=== PATIENT | female | born 1990 | race Caucasian/White ===

== ENCOUNTER 2020-12-15 14:13 | Outpatient (CLI) | payer OTHER, SELFPAY ==
[2020-12-15 14:33] VITALS: BP 148/89; PULSE 95
[2020-12-15 14:56] VITALS: BP 150/76; PULSE 87
[2020-12-15 15:00] VITALS: BP 147/89; PULSE 88
[2020-12-15 15:13] LABS: Basophils Percent Auto 0.2 % (0.2-1.2); Eosinophils Absolute Auto 0.1 K/mm3 (0-0.3); Eosinophils Percent Auto 0.6 % (0-4.4); Hematocrit 31.5 % (37.0-47.0); Hemoglobin 8.8 g/dL (12.0-15.0); Immature Granulocyte Percent A 0.9 % (0-0.5); Lymphocytes Absolute Auto 1.52 K/mm3 (0.9-3.2); Lymphocytes Percent Auto 14.1 % (18.3-44.2); Mean Corpuscular HGB Conc 27.9 g/dl (32-36); Mean Corpuscular Hemoglobin 21.3 pg (26-34); Mean Corpuscular Volume 76.1 fl (80-100); Mean Platelet Volume 10.3 fl (7.4-10.4); Monocytes Absolute Auto 0.6 K/mm3 (0.1-0.6); Monocytes Percent Auto 5.3 % (2.6-8.5); Neutrophils Absolute Auto 8.5 K/mm3 (1.3-6.7); Neutrophils Percent Auto 78.9 % (45.5-73.1); Platelet Count Result 323 k/mm3 (150-375); Red Blood Count 4.14 M/mm3 (4.2-5.4); Red Cell Distribution Width 22.5 % (11.5-14.5); White Blood Count 10.8 K/mm3 (4.5-10.0)
[2020-12-15 15:16] VITALS: BP 136/79; PULSE 85
[2020-12-15 15:19] LABS: Add Urine Microscopic? YES; Appearance Urine Cloudy (Clear); Bacteria Urine Trace /hpf; Bilirubin Urine Negative (Negative); Blood Urine Negative (Negative); Color Urine Yellow (Yellow); Glucose Urine UA Negative (Negative); Ketones Urine Negative (Negative); Leukocyte Esterase Ur 3+ LEU/UL (NEGATIVE); Nitrate Urine Negative (Negative); Protein Urine Negative (Negative); Squamous Epithelial Cell Urine Moderate /hpf (Few); Urobilinogen Urine Negative mg/dL (<2.0)
[2020-12-15 15:29] LABS: Alanine Aminotransferase 11 U/L (4-35); Albumin Level 3.7 g/dL (3.5-5.1); Alkaline Phosphatase 106 U/L (38-126); Anion Gap 8 mmol/L (8-16); Aspartate Amino Transferase 18 U/L (14-36); Bilirubin,Total 0.7 mg/dL (0.2-1.3); Blood Urea Nitrogen 7 mg/dL (7-17); Carbon Dioxide 21 mmol/L (22-30); Chloride 105 mmol/L (98-107); Estimated Glomerular Filt Rate > 60; Glucose 118 mg/dL (65-110); Potassium 3.8 mmol/L (3.4-5.0); Sodium 134 mmol/L (137-145); Uric Acid 3.2 mg/dL (2.5-7.5)
[2020-12-15 15:31] VITALS: BP 149/87; PULSE 89
[2020-12-15 15:42] LABS: Creatinine Urine 56.8 mg/dL; Total Protein Urine Random 16 mg/dL; Ur Ttl Prot Creatinine Ratio 0.28 mg/mg (0-0.20)
== END 2020-12-15 16:30 | disposition home or self-care (01) ==
LOC: ANHOBOP 14:21 → ANHOBPP 14:21
PROVIDERS: Visit Provider Obstetrics & Gynecology
DX: O13.9 Gestational [pregnancy-induced] hypertension without significant proteinuria, unspecified trimester (principal); Z3A.00 Weeks of gestation of pregnancy not specified
CPT/HCPCS: 36415; 59025; 80053; 81001; 82570; 84156; 84550; 85025; 87086; 99199

== ENCOUNTER 2020-12-16 16:20 | Outpatient (NON) | payer OTHER, SELFPAY ==
[2020-12-16 17:40] VITALS: BMI 38.1
[2020-12-16 19:09] LABS: Total Volume 24 Hour Urine 5250 ml
[2020-12-16 19:13] LABS: Total Volume 24 Hour Urine 5250 ml
[2020-12-16 19:20] LABS: Specific Gravity Ur 1.015
[2020-12-16 19:28] LABS: Total Protein Urine Random 16 mg/dL
[2020-12-16 19:31] LABS: Total Protein Urine 24 Hr 840 mg/24hr (28-141)
== END 2020-12-16 16:21 | disposition home or self-care (01) ==
LOC: ANHOBOP 17:23
PROVIDERS: Visit Provider Obstetrics & Gynecology
DX: R03.0 Elevated blood-pressure reading, without diagnosis of hypertension (principal)
CPT/HCPCS: 81050; 82570; 84156

== ENCOUNTER 2020-12-29 00:33 | Inpatient (IN) | payer OTHER, SELFPAY ==
[2020-12-29] VITALS (214 sets, daily range): BP systolic 101–165; BP diastolic 58–104; PULSE 83–137; RESP 16–20; TEMP 36.4–37.7; O2SAT 83–100; BMI 38.5
--- NOTE | 2020-12-29 00:35 | LDADM ---
This patient, Portia Mckeon, was admitted to Labor/Delivery/Recovery 107 on 12/29/20 at 00:33. Plans for labor, pain management and were discussed with patient. Patient/family oriented to hospital policies and general routines including ID bracelet, bed and alarms, visiting hours, pain management, procedures, bathroom and other care routines, personal items, smoking policy, room service/diet and guest tray routines, security routines, and visiting hours. Patient/Family are encouraged to report perceived risks to care and to ask questions if they do not understand what they are told or what they should do. See OBIX for further documentation.
[2020-12-29 01:11] LABS: Basophils Percent Auto 0.2 % (0.2-1.2); Eosinophils Absolute Auto 0.1 K/mm3 (0-0.3); Eosinophils Percent Auto 0.4 % (0-4.4); Hematocrit 34.5 % (37.0-47.0); Hemoglobin 9.7 g/dL (12.0-15.0); Immature Granulocyte Absolute 0.07 K/mm3 (0.00-0.031); Immature Granulocyte Percent A 0.5 % (0-0.5); Lymphocytes Absolute Auto 1.87 K/mm3 (0.9-3.2); Lymphocytes Percent Auto 13.7 % (18.3-44.2); Mean Corpuscular HGB Conc 28.1 g/dl (32-36); Mean Corpuscular Hemoglobin 20.8 pg (26-34); Mean Corpuscular Volume 73.9 fl (80-100); Mean Platelet Volume 10.6 fl (7.4-10.4); Monocytes Absolute Auto 0.7 K/mm3 (0.1-0.6); Monocytes Percent Auto 5.3 % (2.6-8.5); Neutrophils Absolute Auto 10.9 K/mm3 (1.3-6.7); Neutrophils Percent Auto 79.9 % (45.5-73.1); Platelet Count Result 208 k/mm3 (150-375); Red Blood Count 4.67 M/mm3 (4.2-5.4); Red Cell Distribution Width 20.4 % (11.5-14.5); White Blood Count 13.6 K/mm3 (4.5-10.0)
[2020-12-29] MEDS: DINOPROSTONE 10 MG VAG INSERT VAGINAL (01:14)
[2020-12-29] MEDS: LACTATED RINGERS 1,000 ML 125 ML IV CONT ×2 (01:20→10:18)
[2020-12-29] MEDS: AMPICILLIN 2 GM/NS 100 ML 2 GM/100 ML BAG IVPB (01:22)
[2020-12-29 01:35] LABS: Platelet Estimate Adequate (Adequate)
[2020-12-29 01:36] LABS: Ovalocytes 2+ (NORMAL); Tear Drop Cells 2+ (NORMAL)
[2020-12-29] MEDS: AMPICILLIN 1 GM/NS 50 ML 1 GM/50 ML BAG IVPB ×4 (05:15→18:35)
[2020-12-29 06:22] LABS: Rapid Plasma Reagin Non-Reactive (NonReactive)
--- NOTE | 2020-12-29 08:10 | WPDANESEPP ---
Anes - Eval Pre Procedure Procedure: labor epidural Date/Time: 12/29/20 08:10 Surgeon: bijan Pre Op Diagnosis: IOL Patient Data Age: 30 Gender: F Height: 1.75 m Weight: 118.18 kg Last Vital Signs Temp 36.6 C 12/29/20 01:52 Pulse 92 12/29/20 07:16 Resp 16 12/29/20 03:49 BP 138/96 H 12/29/20 07:16 Allergies Allergy/AdvReac Type Severity Reaction Status Date / Time No Known Allergies Allergy Verified 12/29/20 06:19 Home Medications Medication Instructions Recorded Confirmed Type PNV cmb#95-ferrous fumarate-FA 1 tablet PO DAILY 12/03/20 12/03/20 History [] ferrous sulfate [Iron (ferrous 325 mg PO BID 12/03/20 12/03/20 History sulfate)] Laboratory Tests 12/29/20 12/29/20 12/29/20 01:02 01:02 05:23 WBC 13.6 K/mm3 H K/mm3 (4.5-10.0) RBC 4.67 M/mm3 M/mm3 (4.2-5.4) Hgb 9.7 g/dL L g/dL (12.0-15.0) Hct 34.5 % L % (37.0-47.0) MCV 73.9 fl L fl (80-100) MCH 20.8 pg L pg (26-34) MCHC 28.1 g/dl L g/dl (32-36) RDW 20.4 % H % (11.5-14.5) Plt Count 208 k/mm3 k/mm3 (150-375) MPV 10.6 fl H fl (7.4-10.4) Immature Gran % (Auto) 0.5 % % (0-0.5) Neut % (Auto) 79.9 % H % (45.5-73.1) Lymph % (Auto) 13.7 % L % (18.3-44.2) [place] % (Auto) 5.3 % % (2.6-8.5) Eos % (Auto) 0.4 % % (0-4.4) Baso % (Auto) 0.2 % % (0.2-1.2) Lymph # (Auto) 1.87 K/mm3 K/mm3 (0.9-3.2) [place] # (Auto) 0.7 K/mm3 H K/mm3 (0.1-0.6) Eos # (Auto) 0.1 K/mm3 K/mm3 (0-0.3) Baso # (Auto) 0.0 K/mm3 K/mm3 (0.0-0.1) Abs Immat Gran (auto) 0.07 K/mm3 H K/mm3 (0.00-0.031) Absolute Neuts (auto) 10.9 K/mm3 H K/mm3 (1.3-6.7) Absolute Nucleated RBC 0.0 K/mm3 K/mm3 (0.0-0.012) Nucleated RBC % 0.0 % % (0.0-0.2) Platelet Estimate Adequate (Adequate) Tear Drop Cells 2+ (NORMAL) Ovalocytes 2+ (NORMAL) RPR Non-reactive (NonReactive) Blood Type A Positive Antibody Screen Negative Patient hx anesthesia problems: none Family hx anesthesia problems: none Results Review: All pre-operative results and documents have been reviewed as part of the pre-operative evaluation. [facility] Family History Family History Mother Diabetes mellitus Social History Social History Smoking status: Never smoker Substance use: never Spiritual care concerns: No Exam Day of Procedure 12/29/20 08:10
--- NOTE | 2020-12-29 08:40 | PM.IMHP ---
H&P: HPI History of Present Illness Date/Time: 12/29/20 0840 30 y/o G1 at 39 4/7 weeks here for scheduled induction of labor. EFW 97th percentile. GBS pos. Cervidil overnight. Chief Complaint: Here for induction of labor Review of Systems Review of Systems: All systems reviewed & are unremarkable except as noted in HPI and below PMFSH Past Medical History Medical History ADHD (attention deficit hyperactivity disorder) Family History Family History Mother Diabetes mellitus Social History Social History Smoking status: Never smoker Substance use: never Spiritual care concerns: No Meds Home Medications and Allergies Home Medications Medication Instructions Recorded Confirmed Type PNV cmb#95-ferrous fumarate-FA 1 tablet PO DAILY 12/03/20 12/03/20 History [] ferrous sulfate [Iron (ferrous 325 mg PO BID 12/03/20 12/03/20 History sulfate)] Allergies Allergy/AdvReac Type Severity Reaction Status Date / Time No Known Allergies Allergy Verified 12/29/20 06:19 Vital Signs Vital Signs - 24 hr 12/29/20 00:51 12/29/20 01:01 12/29/20 01:15 Temperature Pulse Rate 103 H 107 H 107 H Respiratory Rate Blood Pressure 139/102 H 130/92 H 138/88 Pulse Oximetry 12/29/20 01:31 12/29/20 01:46 12/29/20 01:52 Temperature 36.6 C Pulse Rate 95 91 Respiratory Rate 18 Blood Pressure 130/88 134/84 Pulse Oximetry 12/29/20 02:01 12/29/20 02:16 12/29/20 02:30 Temperature Pulse Rate 94 91 97 Respiratory Rate Blood Pressure 142/92 H 130/82 132/88 Pulse Oximetry 12/29/20 02:46 12/29/20 03:01 12/29/20 03:49 Temperature Pulse Rate 83 91 Respiratory Rate 16 Blood Pressure 136/76 136/85 Pulse Oximetry 12/29/20 07:08 12/29/20 07:16 12/29/20 07:36 Temperature 36.6 C Pulse Rate 100 92 Respiratory Rate Blood Pressure 145/95 H 138/96 H Pulse Oximetry 12/29/20 09:00 12/29/20 09:01 12/29/20 09:16 Temperature 36.6 C Pulse Rate 101 H 103 H Respiratory Rate Blood Pressure 156/98 H 151/88 H Pulse Oximetry 12/29/20 09:31 12/29/20 10:33 12/29/20 10:38 Temperature Pulse Rate 102 H 113 H Respiratory Rate Blood Pressure 153/89 H 140/90 Pulse Oximetry 100 100 12/29/20 10:43 12/29/20 10:46 12/29/20 10:48 Temperature Pulse Rate 100 94 101 H Respiratory Rate Blood Pressure 158/97 H 159/90 H 138/87 Pulse Oximetry 100 100 12/29/20 10:51 12/29/20 10:53 12/29/20 10:56 Temperature Pulse Rate 92 104 H 101 H Respiratory Rate Blood Pressure 147/87 H 142/79 H 144/80 H Pulse Oximetry 98 12/29/20 10:58 12/29/20 11:00 12/29/20 11:03 Temperature 36.5 C Pulse Rate 106 H 100 110 H Respiratory Rate Blood Pressure 136/91 H 129/78 126/71 Pulse Oximetry 100 100 12/29/20 11:06 12/29/20 11:08 12/29/20 11:11 Temperature Pulse Rate 116 H 115 H Respiratory Rate Blood Pressure 133/67 116/77 Pulse Oximetry 100 12/29/20 11:13 12/29/20 11:15 12/29/20 11:18 Temperature Pulse Rate 136 H Respiratory Rate Blood Pressure 117/73 Pulse Oximetry 100 100 12/29/20 11:20 12/29/20 11:23 12/29/20 11:26 Temperature Pulse Rate 105 H 107 H Respiratory Rate Blood Pressure 120/64 110/77 Pulse Oximetry 100 12/29/20 11:28 12/29/20 11:31 12/29/20 11:33 Temperature Pulse Rate 98 Respiratory Rate Blood Pressure 125/58 L Pulse Oximetry 100 100 12/29/20 11:38 12/29/20 11:41 12/29/20 11:43 Temperature Pulse Rate 99 Respiratory Rate Blood Pressure 122/68 Pulse Oximetry 100 100 12/29/20 11:46 12/29/20 11:48 12/29/20 11:51 Temperature Pulse Rate 98 100 Respiratory Rate Blood Pressure 112/59 L 107/63 Pulse Oximetry 100 12/29/20 11:53 12/29/20 11:56
--- NOTE | 2020-12-29 08:40 | WPDOBADMIT ---
Obstetrics - Admit Note Admission Note: record reviewed. Additions to the history and/or subsequent changes in the physical findings follow. 30 y/o G1 at 39 4/7 weeks here for induction of labor. EFW 97th percentile. GBS pos. Cervidil last night. AVSS NST reactive TOCO: contractions irregularly ABD soft, gravid, vertex EXT nontender Cervix 2/50/-2. AROM with clear fluid. IUPC placed. Cervidil withdrawn. A: IUP at term, GBS pos. P: Oxytocin. Ampicillin.
[2020-12-29] MEDS: OXYTOCIN 30 UNITS/NS 500 ML 30 UNITS/500 ML BAG 6 UNITS IV CONT (09:18)
--- NOTE | 2020-12-29 13:05 | PM.OBPNLAB ---
Pain Control Date/time seen: 12/29/20 4085 Comments: Comfortable with epidural. Pelvic Exam Dilation (cm): 4 Effacement (%): 50 station: -2 Contractions Contraction frequency: 3 Contraction pattern: Regular Status status: Category l Assessment and Plan Pitocin rate (mU/min): 20 Plan: continuous present management
--- NOTE | 2020-12-29 17:54 | PM.OBPNLAB ---
Pain Control Date/time seen: 12/29/20 17:54 Comments: Comfortable Pelvic Exam Dilation (cm): 4 Effacement (%): 50 station: -2 Contractions Contraction frequency: 3 Contraction pattern: Regular Status status: Category l Assessment and Plan Plan: continuous present management
--- NOTE | 2020-12-29 23:37 | PM.OBPNLAB ---
Pain Control Date/time seen: 12/29/20 23:37 Comments: Pain OK. Pelvic Exam Dilation (cm): 5 Effacement (%): 50 station: -2 Contractions Contraction frequency: 3 Contraction pattern: Regular Status status: Category l Assessment and Plan Comments: A: No significant change in cervix / station despite hours of adequate uterine contractions. P: I have offered primary . She understands risks of surgery to include risks of anesthesia, risks of pain, infection, bleeding, blood products, thromboembolic phenomena and damage to adjacent structures such as bowel, bladder, ureters, blood vessels and nerves. She understands all these risks and elects to proceed with surgery.
[2020-12-29] MEDS: ceFAZolin 2 GM/D5W 50 ML 2 GM/50 ML BAG IVPB (23:42)
[2020-12-30] VITALS (45 sets, daily range): BP systolic 112–151; BP diastolic 59–95; PULSE 97–121; RESP 16–18; TEMP 36.1–37.6; O2SAT 95–100
--- NOTE | 2020-12-30 00:31 | P.PCNOB_ITS ---
OB - Delivery Note Procedure Delivery date: 12/30/20 Procedure: Procedures Operation Date: 12/29/20 23:00 <No data on this case meets the specified criteria> Primary low transverse delivery Induction method: per cervidil protocol Delivery augmentation: rupture of membranes and pitocin Delivery monitor: external FHT, external uterine and internal uterine Route of delivery: Quantitative Blood Loss (ml): 417 Anesthesia type: Epidural Disposition: PACU Complications: None Narrative: The patient was taken to the operating room where she was prepared and draped in the usual sterile fashion in dorsal supine position with a leftward tilt. She received cefazolin preoperatively. Spinal anesthesia was found to be adequate. A Pfannenstiel skin incision was made and carried through to the underlying layer of the fascia. The fascia was incised in the midline and the incision was extended laterally. The fascia was dissected free of the underlying rectus muscles. The rectus muscles were in the midline. The peritoneum was identified, tented up and entered sharply. The peritoneal incision was extended superiorly and inferiorly with good visualization of the bladder. The bladder blade was placed. The vesicouterine peritoneum was identified, tented up and entered sharply. The incision was extended laterally and the bladder flap was developed. The bladder blade was replaced. The uterus was then incised sharply in a transverse fashion along the lower uterine segment. The incision was extended laterally. The 's head was delivered atraumatically to the sterile field, followed by the body. The nose and mouth were bulb suctioned. After a delay, the cord was clamped and cut. The infant was handed off the field. Cord blood was collected. The placenta was removed manually and was passed off the field. The uterus was exteriorized and cleared of all clots and debris. The uterine incision was reapproximated using 0 Monoc ryl in a running, locked fashion. Excellent hemostasis resulted as did excellent reapproximation of the normal anatomy. The uterus was returned the abdomen. The pelvis was irrigated copiously with warmed normal saline. Rigorous hemostasis was assured. The fascial layer was reapproximated using 0 Vicryl in a running fashion. The skin was closed with a running, subcuticular stitch of 4 0 Vicryl. Dermaflex was applied externally. Sponge, lap, needle and instrument counts were correct. The patient was taken to the recovery room in stable condition. The went to the nursery in stable condition. I was present and scrubbed the entire procedure. [place] [facility] Date of : 12/30/20 Time of : 00:03 Weeks of gestation at delivery: 39 gender: Male Weight (pounds): 7 Weight (ounces): 13 presentation: vertex Placenta delivery description: Manual Removal and Normal Configuration cord vessel description: 3 Vessels and Delayed Cord Clamping score one minute: 8 score five minutes: 9
--- NOTE | 2020-12-30 00:32 | PM.OBDSVD ---
DS: Admitting Diagnosis Discharge Date 01/01/21 Admitting Diagnosis IUP at 39 4/7 weeks GBS colonization DS: Discharge Diagnosis Discharge Diagnosis (1) GBS (group B Streptococcus carrier), +RV culture, currently : Code(s): O99.820 - Streptococcus B carrier state complicating Status: Acute (2) delivery delivered: Code(s): O82 - Encounter for delivery without indication Status: Acute OB - DS: Summary OB Procedures : None OB Procedures Intrapartum: OB Procedures: : None Peripartum Data Procedures: Procedures Operation Date: 12/29/20 23:00 <No data on this case meets the specified criteria> Primary LTCS Time Spent with Patient Time attestation: Total time spent providing and/or coordinating discharge services: DS: Data Data Completed and Pending Labs on day of discharge: Labs from last 24 hours 12/29/20 12/29/20 12/29/20 05:23 01:02 01:02 WBC 13.6 H RBC 4.67 Hgb 9.7 L Hct 34.5 L MCV 73.9 L MCH 20.8 L MCHC 28.1 L RDW 20.4 H Plt Count 208 MPV 10.6 H Immature Gran % (Auto) 0.5 Neut % (Auto) 79.9 H Lymph % (Auto) 13.7 L [place] % (Auto) 5.3 Eos % (Auto) 0.4 Baso % (Auto) 0.2 Lymph # (Auto) 1.87 [place] # (Auto) 0.7 H Eos # (Auto) 0.1 Baso # (Auto) 0.0 Abs Immat Gran (auto) 0.07 H Absolute Neuts (auto) 10.9 H Absolute Nucleated RBC 0.0 Nucleated RBC % 0.0 Platelet Estimate Adequate Tear Drop Cells 2+ Ovalocytes 2+ RPR Non-reactive Blood Type A Positive Antibody Screen Negative Discharge Plan Discharge Attending physician on discharge: Carl Tse Discharging Clinician: Carl Tse Patient Disposition: Home, Self-Care Activity: may shower, may drive after 2 weeks and pelvic rest Diet: regular Wound Care Instructions: incision open to air Discharge Instructions: Education: Mom and Baby Guide Given to: Mother Follow-Up: Call your delivering provider's office for an appointment to be seen in: 4 Weeks Mom and baby should come to the [facility] for the follow-up appointment. Appointment Date/Time: Saturday, January 02, 2021 at 8:00 am Call [phone] if you are unable to keep your appointment time. BREAST CARE: * Wear a snug supportive bra. * For engorgement discomfort: Breast Feeding: * Apply warm moist washcloths * Express milk as needed to relieve engorgement * Wear loose clothing * For sore nipples: * Identify correct latch-on * Apply warm moist washcloths before and after nursing * Air dry nipples after nursing * May apply Lansinoh cream to nipples ABDOMINAL INCISION: (if applicable) * Allow incision to air dry * Do NOT use lotions for powders on your incision * When showering, allow soap and water to run over the incision, but do not wash incision PERINEAL CARE: * Until bleeding stops, use your augusto bottle after urinating * Change your pad frequently throughout the day * You may take sitz baths several times a day (fill your bathtub with warm water and soak for 20 minutes.) Do NOT bathe in the water * No tub baths until seen by your physician - You may shower ACTIVITY: * Rest as much as possible. * Do not exercise or lift anything heavier than your baby (such as laundry or other children.) * Avoid stairs or driving as much as possible. * Do not put anything into the vagina. No douching, tampons, or sexual activity until seen by physician. NOTIFY PHYSICIAN IF YOU HAVE ANY QUESTIONS OR IF ANY OF THE FOLLOWING SYMPTOMS OCCUR: * If your episiotomy or incision becomes red, swollen, or more painful than what you have experienced in the hospital. * If your vaginal bleeding becomes foul smelling. * If your vaginal bleeding becomes more heavy than a period or if you
[2020-12-30] MEDS: OXYTOCIN 30 UNITS/NS 500 ML 30 UNITS/500 ML BAG 125 UNITS IV CONT (01:22)
[2020-12-30] MEDS: KETOROLAC 30 MG/ML VIAL (*BKC) IV PUSH (02:17)
[2020-12-30] MEDS: DEXTROSE 5%/0.45% SOD CHL 1,000 ML 125 ML IV CONT (05:57)
[2020-12-30] MEDS: HYDROcodone/acetaminophen (*CRX) 5-325 MG TABLET 1 TAB PO ×4 (05:58→17:01)
[2020-12-30] MEDS: IBUPROFEN 600 MG TABLET PO ×3 (09:50→21:58)
[2020-12-30] MEDS: MULTIVIT/MIN/PREN/FOL AC/IRON TABLET 1 TAB PO (09:50)
[2020-12-30] MEDS: POLYSACCHARIDE IRON COMPLEX 150 MG CAPSULE PO ×2 (09:50→17:02)
--- NOTE | 2020-12-30 10:27 | P.PNOB_ITS ---
OB - PN: Subj Subjective Date/time seen: 12/30/20 10:27 Patient comments: no complaints and pain well controlled baby status: doing well and nursing well OB - PN: Obj Data Labs CBC & Chem 7: 12/29/20 01:02 OB - PN A/P Plan day: 1 Plan: routine care Time Spent With Patient Time: Total time spent is greater than 50% in coordination of care (as valentino pack) at patient's floor/unit and/or counseling patient: Time with patient: less than 15 minutes Review of Systems Review of Systems: All systems reviewed & are unremarkable except as noted in HPI and below Exam Const: General: no acute distress Eyes: General: appearance normal, both eyes and all related structures Neck: Neck: supple and no JVD Thyroid: thyroid normal Resp: Effort & Inspection: normal respiratory effort Auscultation: clear to auscultation bilaterally Cardio: Rate: regular rate Rhythm: regular rhythm GI: Inspection: non-distended GI Palp: Yes Soft to palpation, No Tenderness to palpation present (GI) and No Guarding due to palpation present (GI) Auscultation: normal bowel sounds : General: Yes bladder normal to palpation External Female Exam: normal external appearance Speculum Exam - Vagina: normal vaginal discharge and No vaginal bleeding Speculum Exam - Cervix: nontender Bimanual exam- vagina & uterus: bladder normal to palpation and No Cervical tenderness present OB/external & speculum: No vaginal bleeding Skin: General skin exam: no rashes or lesions noted Extrem: General: normal to inspection and no edema Psych: Mental Status: mental status grossly normal Affect: normal affect
--- NOTE | 2020-12-30 10:35 | PC.NURSE ---
Mother called out for assist with feeding, reporting is sleepy and not waking. is able to freely thrust tongue past gum ridge and flange both lips. Skin is intact on both nipples, no redness and bruising noted. Discussed establishing in the late may be more difficult due to their immaturity, may be less alert, have less stamina, and have greater difficulty with latch, suck, and swallow. ?s feeding may impact mother?s milk supply, pumping may need to be initiated until milk supply is well established and is able to effectively breastfeed without supplementation. Reviewed infant feeding cues, frequencies, duration of feedings, feeding elimination flow sheet, and signs of adequate intake. Demonstrated stimulation techniques to wake infant for feeding. Assisted with to breast. Reviewed positioning/alignment in cross cradle, holding breast in ?U? hold and guided asymmetrical latch on. Reviewed rational for each. able to latch correctly within a few attempts. nursed eagerly with steady draws and occasional swallowing noted, some pausing noted. Reviewed signs of a correct latch, effective nursing and suck swallow ratio. Suggested mother stimulate while feeding to increase stimulation for milk supply, for increased intake and to assist with maintaining deep latch. was able to maintain latch without discomfort to mother. Demonstrated how to adjust latch more deeply while feeding if needed. Mother reports she can feel the difference in latch with no tenderness. Nipple care reviewed of lanolin after feedings, warm compresses as needed, gel pads provided and reviewed care and cleaning. Instructed mother to call out for RN assistance if she is unable to latch for feeding or she has discomfort with nursing. Instructed feeding should be initiated three hours from start of last feeding or if feeding cues are noted before. Mother voiced understanding of information shared.
--- NOTE | 2020-12-30 13:50 | PC.NURSE ---
Mother called out for assist with feeding,struggling to get a deep latch. Assisted with to breast. Reviewed positioning/alignment in cross cradle, holding breast in ?U? hold and guided asymmetrical latch on. Reviewed rational for each. Infant able to latch correctly within a few attempts. Infant nursed eagerly with steady draws and occasional swallowing noted, some pausing noted. Reviewed signs of a correct latch, effective nursing and suck swallow ratio. Suggested mother stimulate while feeding to increase stimulation for milk supply, for increased intake and to assist with maintaining deep latch. Infant would slip to shallow latch causing tenderness. Demonstrated how to adjust latch more deeply while feeding if needed. Mother reports she can feel the difference in latch with no tenderness. Nipple care reviewed of lanolin after feedings, warm compresses as needed, gel pads provided and reviewed care and cleaning. Instructed mother to call out for RN assistance if she is unable to latch infant for feeding or she has discomfort with nursing. Instructed feeding should be initiated three hours from start of last feeding or if feeding cues are noted before. Mother voiced understanding of information shared.
[2020-12-30] MEDS: DOCUSATE SODIUM 100 MG CAPSULE PO (17:02)
[2020-12-30] MEDS: SIMETHICONE 80 MG TAB.CHEW PO (21:58)
[2020-12-30] MEDS: HYDROcodone/acetaminophen (*CRX) 10-325 MG TABLET 1 TAB PO (21:58)
[2020-12-31] VITALS: BP 132/77; PULSE 96; RESP 18; TEMP 37
[2020-12-31 05:29] LABS: Basophils Percent Auto 0.2 % (0.2-1.2); Eosinophils Absolute Auto 0.1 K/mm3 (0-0.3); Eosinophils Percent Auto 0.9 % (0-4.4); Hematocrit 24.3 % (37.0-47.0); Immature Granulocyte Absolute 0.11 K/mm3 (0.00-0.031); Immature Granulocyte Percent A 1.2 % (0-0.5); Lymphocytes Percent Auto 9.9 % (18.3-44.2); Mean Corpuscular Hemoglobin 21.3 pg (26-34); Mean Corpuscular Volume 76.2 fl (80-100); Mean Platelet Volume 10.5 fl (7.4-10.4); Monocytes Absolute Auto 0.8 K/mm3 (0.1-0.6); Monocytes Percent Auto 8.9 % (2.6-8.5); Neutrophils Absolute Auto 7.2 K/mm3 (1.3-6.7); Neutrophils Percent Auto 78.9 % (45.5-73.1); Nucleated Red Blood Cells Perc 0.2 % (0.0-0.2); Platelet Count Result 194 k/mm3 (150-375); Red Blood Count 3.19 M/mm3 (4.2-5.4); Red Cell Distribution Width 20.1 % (11.5-14.5); White Blood Count 9.1 K/mm3 (4.5-10.0)
[2020-12-31] MEDS: IBUPROFEN 600 MG TABLET PO ×3 (05:45→20:28)
[2020-12-31] MEDS: SIMETHICONE 80 MG TAB.CHEW PO ×3 (05:45→20:28)
[2020-12-31] MEDS: HYDROcodone/acetaminophen (*CRX) 10-325 MG TABLET 1 TAB PO ×3 (05:46→13:27)
[2020-12-31 06:06] LABS: Hemoglobin 6.8 g/dL (12.0-15.0)
[2020-12-31 06:07] LABS: Anisocytosis 1+ (NORMAL); Hypochromasia 1+ (NORMAL); Platelet Estimate Adequate (Adequate)
--- NOTE | 2020-12-31 07:39 | P.PNOB_ITS ---
OB - PN: Subj Subjective Date/time seen: 12/31/20 07:39 Patient comments: no complaints and pain well controlled OB - PN: Obj Data Labs CBC & Chem 7: 12/31/20 03:08 Labs: Laboratory Results - last 24 hr 12/31/20 03:08 WBC 9.1 RBC 3.19 L Hgb 6.8 L* Hct 24.3 L MCV 76.2 L MCH 21.3 L MCHC 28.0 L RDW 20.1 H Plt Count 194 MPV 10.5 H Immature Gran % (Auto) 1.2 H Neut % (Auto) 78.9 H Lymph % (Auto) 9.9 L [place] % (Auto) 8.9 H Eos % (Auto) 0.9 Baso % (Auto) 0.2 Lymph # (Auto) 0.90 [place] # (Auto) 0.8 H Eos # (Auto) 0.1 Baso # (Auto) 0.0 Abs Immat Gran (auto) 0.11 H Absolute Neuts (auto) 7.2 H Absolute Nucleated RBC 0.0 Nucleated RBC % 0.2 Platelet Estimate Adequate Hypochromasia 1+ Anisocytosis 1+ OB - PN A/P Plan day: 2 Plan: routine care Comments: begin iron replacement Time Spent With Patient Time: Total time spent is greater than 50% in coordination of care (as documented) at patient's floor/unit and/or counseling patient: Time with patient: less than 15 minutes Review of Systems Review of Systems: All systems reviewed & are unremarkable except as noted in HPI and below Exam Const: General: no acute distress Eyes: General: appearance normal, both eyes and all related structures Neck: Neck: supple and no JVD Thyroid: thyroid normal Resp: Effort & Inspection: normal respiratory effort Auscultation: clear to auscultation bilaterally Cardio: Rate: regular rate Rhythm: regular rhythm GI: Inspection: non-distended GI Palp: Yes Soft to palpation, No Tenderness to palpation present (GI) and No Guarding due to palpation present (GI) Auscultation: normal bowel sounds : General: Yes bladder normal to palpation External Female Exam: normal external appearance Speculum Exam - Vagina: normal vaginal discharge and No vaginal bleeding Speculum Exam - Cervix: nontender Bimanual exam- vagina & uterus: bladder normal to palpation and No Cervical tenderness present OB/external & speculum: No vaginal bleeding Skin: General skin exam: no rashes or lesions noted Extrem: General: normal to inspection and no edema Psych: Mental Status: mental status grossly normal Affect: normal affect
[2020-12-31] MEDS: DOCUSATE SODIUM 100 MG CAPSULE PO ×2 (09:16→15:15)
[2020-12-31] MEDS: POLYSACCHARIDE IRON COMPLEX 150 MG CAPSULE PO ×2 (09:16→15:15)
[2020-12-31] MEDS: MULTIVIT/MIN/PREN/FOL AC/IRON TABLET 1 TAB PO (09:16)
[2020-12-31 09:17] VITALS: BP 121/79; PULSE 80; RESP 16; TEMP 36.1; O2SAT 100
--- NOTE | 2020-12-31 09:53 | WPDANLDNPN2 ---
Anes-Prog Note L&D-Neuraxial Date/Time: 12/31/20 09:53 Neuraxial medications: epidural PF morphine Opiod-related complaints: none Patient feedback: Patient satisfied with post-operative pain management.
--- NOTE | 2020-12-31 09:53 | WPDANLDPN2 ---
Anes-Prog Note L&D Date/Time: 12/31/20 09:53 Comfortable throughout: labor and delivery Neuraxial method: epidural Epidural/Spinal procedure site: clean & non-tender Neuro status: Neuro function grossly intact. Cardiovascular status: normal Respiratory status: normal Airway patency: baseline Mental status: baseline Post-Op hydration status: normal Vital Signs: Last Vital Signs Temp 37.0 C 12/31/20 00:00 Pulse 96 12/31/20 00:00 Resp 18 12/31/20 00:00 BP 132/77 12/31/20 00:00 Pulse Ox 100 12/30/20 17:15 Pain score (VAS): 0 I/O: Intake & Output 12/30/20 12/31/20 12/31/20 23:59 07:59 15:59 Intake Total 3200 Output Total 3150 Balance 50 Post-procedural complaints: none Patient feedback: Patient satisfied with anesthetic care.
[2020-12-31] MEDS: HYDROcodone/acetaminophen (*CRX) 5-325 MG TABLET 1 TAB PO (20:28)
[2020-12-31 20:30] VITALS: BP 126/88; PULSE 98; RESP 16; TEMP 37; O2SAT 100
--- NOTE | 2020-12-31 20:38 | PC.NURSE ---
Patient viewed the discharge video Mother & Baby Care, The First Two Weeks . Patient was given the opportunity and encouraged to ask questions. Patient verbalized understanding of information shared and has been given the mother/baby guide for home reference.
[2021-01-01] MEDS: SIMETHICONE 80 MG TAB.CHEW PO ×3 (00:36→10:18)
[2021-01-01] MEDS: HYDROcodone/acetaminophen (*CRX) 5-325 MG TABLET 1 TAB PO ×3 (00:36→10:16)
[2021-01-01] MEDS: IBUPROFEN 600 MG TABLET PO ×2 (04:20→10:17)
--- NOTE | 2021-01-01 07:02 | P.DS_ITS ---
DS: Admitting Diagnosis Discharge Date 01/02/2021 Admitting Diagnosis term for induction DS: Summary Hospital Course Hospital Course: patient was admitted for induction of labor. She failed to progress and underwent section. Postop course unremarkable. She did have a low hemoglobin at 6.6 but was asymptomatic. She remained afebrile and was up walking voiding and generally felt complaints Time Spent with Patient Time attestation: Total time spent providing and/or coordinating discharge se rvices: DS: Data Data Completed and Pending Pending studies at discharge: Pending at discharge 12/30/20 02:04 Surgical [PTH] Routine Discharge Plan Discharge Attending physician on discharge: Carl Tse Discharging Clinician: Carl Tse Patient Disposition: Home, Self-Care Activity: may shower, may drive after 2 weeks and pelvic rest Diet: regular Wound Care Instructions: incision open to air Discharge Instructions: Call or return if temperature above 100.4? F, increased abdominal pain, increased vaginal bleeding or any new problems. Stand Alone Forms: General Discharge Information Follow-up/Referrals: Carl Tse MD [Physician] - 4 Weeks Discharge Medications: New ibuprofen 600 mg tablet 600 mg PO Q6H PRN (Reason: cramps) Qty: 30 RF: 0 hydrocodone-acetaminophen 5-325 mg tablet 1 - 2 tablet PO Q6H PRN (Reason: pain) Qty: 30 RF: 0 ferrous sulfate 325 mg (65 mg iron) tablet 325 mg PO DAILY Qty: 30 RF: 0 Continued ferrous sulfate [Iron (ferrous sulfate)] 325 mg (65 mg iron) Tablet 325 mg PO BID RF: 0 PNV cmb#95-ferrous fumarate-FA [] 28 mg iron- 800 mcg Tablet 1 tablet PO DAILY RF: 0 Date of admission: 12/29/20 00:33 Primary Care Provider: PHYSICIAN,BLASTING CONTRACT MINER Admitting Provider: Carl Tse Attending physician on admission: Carl Tse Condition: Stable
--- NOTE | 2021-01-01 07:03 | P.PNOB_ITS ---
OB - PN: Subj Subjective Date/time seen: 01/01/21 07:03 Patient comments: no complaints and pain well controlled baby status: doing well and nursing well OB - PN: Obj Data Labs CBC & Chem 7: 12/31/20 03:08 OB - PN A/P Plan day: 2 Plan: routine care Time Spent With Patient Time: Total time spent is greater than 50% in coordination of care (as valentino pack) at patient's floor/unit and/or counseling patient: Time with patient: less than 15 minutes Review of Systems Review of Systems: All systems reviewed & are unremarkable except as noted in HPI and below Exam Const: General: no acute distress Eyes: General: appearance normal, both eyes and all related structures Neck: Neck: supple and no JVD Thyroid: thyroid normal Resp: Effort & Inspection: normal respiratory effort Auscultation: clear to auscultation bilaterally Cardio: Rate: regular rate Rhythm: regular rhythm GI: Inspection: non-distended GI Palp: Yes Soft to palpation, No Tenderness to palpation present (GI) and No Guarding due to palpation present (GI) Auscultation: normal bowel sounds : General: Yes bladder normal to palpation External Female Exam: normal external appearance Speculum Exam - Vagina: normal vaginal discharge and No vaginal bleeding Speculum Exam - Cervix: nontender Bimanual exam- vagina & uterus: bladder normal to palpation and No Cervical tenderness present OB/external & speculum: No vaginal bleeding Skin: General skin exam: no rashes or lesions noted Extrem: General: normal to inspection and no edema Psych: Mental Status: mental status grossly normal Affect: normal affect
[2021-01-01] MEDS: MULTIVIT/MIN/PREN/FOL AC/IRON TABLET 1 TAB PO (10:16)
[2021-01-01] MEDS: POLYSACCHARIDE IRON COMPLEX 150 MG CAPSULE PO (10:17)
[2021-01-01] MEDS: DOCUSATE SODIUM 100 MG CAPSULE PO (10:17)
[2021-01-01 10:18] VITALS: BP 144/89; PULSE 98; RESP 16; TEMP 36.9; O2SAT 100
[2021-01-02 08:12] VITALS: BP 146/87; PULSE 96; RESP 20; TEMP 36.9; O2SAT 100
--- NOTE | 2021-01-02 15:22 | PC.NURSE ---
0930 While pt here for her f/u, worked with mom and baby with breast feeding. Mother reported difficulty latching because of engorgement . Mother reports mosly bottle feeding pumped breast milk. Baby is at 10% weight loss from weight and mother has been instructed to supplement breast feedings. Mother was taught ways to soften nipple and areolar area prior to latching infant for feedings, including warm compresses, breast massage and hand expression prior to latch on, and /or pumping a few minutes prior to latching . She was encouraged to breast feeding first, then pump after breast feeding to enhance her milk supply
--- NOTE | 2021-01-02 15:31 | PC.NURSE ---
0930 while pt here for her f/u visit, nurse worked with mother and baby with breast feeding. Mother reports her milk is not in. Baby is 3 days old. Baby's weight at 10% loss. Mother has been instructed to supplement infant formula or pumped breast millk after breast feedings. She was instructed to breast feed, bottle feeding and start pumping after each feeding untll her milk comes in. Nurse suggested that if mother did not feel breast changes by tomorrow that she contact the LC whom she met while in the hospital. Referred parents to their Mother Baby Guide for LC contact number, and breast feeding education. Nurse assisted mother with feeding. Baby initially latched in cross-cradle position, but latch was not effective. Taught mother football positioning, alignment, and how to assess for deep latch. Baby's latch much better in football position, and baby demonstrated rhythmic sucking with maintained latch, with some swallowing. Parents shown how to stimulate to more vigorous sucking while at the breast. When baby initialy latched he was tense, fists clasped. After nursing the second side, for another 15 minutes baby was sleepy and relaxed. Mother was shown how to hand express and colostrum droplets easily expressed. Mother seemed very happy to see her breast milk. FOB then bottle fed infant 10cc of Enfamil. Parents were shown paced bottle feeding. Baby took supplement with good suck/swallow, and was very contented. Parents are to continue q2-3h breast feedings, with supplement until baby seen by stress test technician. They voiced understanding of information shared.
== END 2021-01-01 11:37 | disposition home or self-care (01) | DRG 787 ==
LOC: ANHLDR 12-30 00:34 → ANHOB2 01-01 09:52 → ANHLDR 01-02 11:53 → ANHOB2 01-02 11:53
PROVIDERS: Admitting Provider Obstetrics & Gynecology; Visit Provider Obstetrics & Gynecology
PROC: 3E033VJ Introduction of Other Hormone into Peripheral Vein, Percutaneous Approach (ICD-10-PCS; CPT 59514; principal; 2020-12-29 23:00)
DX: O62.0 Primary inadequate contractions (principal); O75.2 Pyrexia during labor, not elsewhere classified; O99.824 Streptococcus B carrier state complicating childbirth; O13.4 Gestational [pregnancy-induced] hypertension without significant proteinuria, complicating childbirth; O76 Abnormality in fetal heart rate and rhythm complicating labor and delivery; Z3A.39 39 weeks gestation of pregnancy; Z37.0 Single live birth
CPT/HCPCS: 36415; 85025; 86592; 86850; 86900; 86901; 88307; A9270; J0131; J0290; J0690; J1885; J2274; J2405; J2590; J2795; J7120

== ENCOUNTER 2022-07-04 02:17 | Inpatient (IN) | payer BC, SELFPAY ==
[2022-07-04] VITALS (62 sets, daily range): BP systolic 95–151; BP diastolic 52–97; PULSE 57–114; RESP 11–20; TEMP 36.3–37; O2SAT 95–100; BMI 38.0
[2022-07-04] MEDS: AMPICILLIN 2 GM/NS 100 ML 2 GM/100 ML BAG IVPB (03:05)
[2022-07-04] MEDS: LACTATED RINGERS 1,000 ML 125 ML IV CONT ×3 (03:05→06:14)
[2022-07-04 03:09] LABS: Basophils Percent Auto 0.2 % (0.2-1.2); Eosinophils Absolute Auto 0.1 K/mm3 (0-0.3); Eosinophils Percent Auto 0.6 % (0-4.4); Hematocrit 36.5 % (37.0-47.0); Hemoglobin 11.4 g/dL (12.0-15.0); Immature Granulocyte Absolute 0.04 K/mm3 (0.00-0.031); Immature Granulocyte Percent A 0.4 % (0-0.5); Lymphocytes Percent Auto 17.2 % (18.3-44.2); Mean Corpuscular HGB Conc 31.2 g/dl (32-36); Mean Corpuscular Hemoglobin 24.1 pg (26-34); Mean Platelet Volume 11.1 fl (7.4-10.4); Monocytes Absolute Auto 0.6 K/mm3 (0.1-0.6); Neutrophils Absolute Auto 7.5 K/mm3 (1.3-6.7); Neutrophils Percent Auto 75.6 % (45.5-73.1); Platelet Count Result 218 k/mm3 (150-375); Red Blood Count 4.74 M/mm3 (4.2-5.4); Red Cell Distribution Width 19.7 % (11.5-14.5); White Blood Count 9.9 K/mm3 (4.5-10.0)
--- NOTE | 2022-07-04 03:21 | LDADM ---
This patient, Portia Mckeon, was admitted to Labor/Delivery/Recovery 120 on 07/04/22 at 02:17. Plans for labor, pain management and were discussed with patient. Patient/family oriented to hospital policies and general routines including ID bracelet, bed and alarms, visiting hours, pain management, procedures, bathroom and other care routines, personal items, smoking policy, room service/diet and guest tray routines, security routines, and visiting hours. Patient/Family are encouraged to report perceived risks to care and to ask questions if they do not understand what they are told or what they should do. See OBIX for further documentation.
[2022-07-04 04:07] LABS: Alanine Aminotransferase 14 U/L (6-35); Albumin Level 3.6 g/dL (3.5-5.1); Alkaline Phosphatase 103 U/L (38-126); Anion Gap 11 mmol/L (8-16); Aspartate Amino Transferase 20 U/L (14-36); Bilirubin,Total 0.7 mg/dL (0.2-1.3); Blood Urea Nitrogen 6 mg/dL (7-17); Calcium 8.4 mg/dL (8.4-10.2); Carbon Dioxide 19 mmol/L (22-30); Chloride 105 mmol/L (98-107); Estimated CRCL calculation 184 ml/min; Estimated Glomerular Filt Rate > 60; Glucose 105 mg/dL (65-110); Potassium 3.7 mmol/L (3.4-5.0); Sodium 135 mmol/L (137-145); Uric Acid 3.9 mg/dL (2.5-7.5)
[2022-07-04] MEDS: AZITHROMYCIN 500 MG/NS 250 ML 500 MG/250 ML BAG 250 MG IVPB (04:30)
--- NOTE | 2022-07-04 04:47 | WPDANESEPP ---
Anes - Eval Pre Procedure Procedure: Operation Date: 07/04/22 05:30 Proposed Procedures p Section - Jesus Ely MD Operation Date: 07/05/22 12:00 Proposed Procedures p Repeat Section - Carl Tse MD Date/Time: 07/04/22 04:47 Pre Op Diagnosis: leaking, r c/s Patient Data Age: 32 Gender: F Height: 1.75 m Weight: 117 kg Last Vital Signs Temp 36.6 C 07/04/22 03:00 Pulse 87 07/04/22 04:31 BP 136/85 07/04/22 04:31 O2 Del Method Room Air 07/04/22 03:19 Allergies Allergy/AdvReac Type Severity Reaction Status Date / Time No Known Allergies Allergy Verified 12/29/20 06:19 Home Medications Medication Instructions Recorded Confirmed Type vit no.95-ferrous 1 tablet PO DAILY 12/03/20 12/03/20 History fumarate 28 mg-folic acid 800 mcg tablet () ferrous sulfate 325 mg (65 mg 325 mg PO DAILY #30 tabs 12/30/20 Rx iron) tablet Laboratory Tests 07/04/22 07/04/22 07/04/22 03:03 03:05 03:52 WBC 9.9 K/mm3 (4.5-10.0) RBC 4.74 M/mm3 (4.2-5.4) Hgb 11.4 L D g/dL (12.0-15.0) Hct 36.5 L % (37.0-47.0) MCV 77.0 L fl (80-100) MCH 24.1 L pg (26-34) MCHC 31.2 L g/dl (32-36) RDW 19.7 H % (11.5-14.5) Plt Count 218 k/mm3 (150-375) MPV 11.1 H fl (7.4-10.4) Immature Gran % (Auto) 0.4 % (0-0.5) Neut % (Auto) 75.6 H % (45.5-73.1) Lymph % (Auto) 17.2 L % (18.3-44.2) [place] % (Auto) 6.0 % (2.6-8.5) Eos % (Auto) 0.6 % (0-4.4) Baso % (Auto) 0.2 % (0.2-1.2) Lymph # (Auto) 1.70 K/mm3 (0.9-3.2) [place] # (Auto) 0.6 K/mm3 (0.1-0.6) Eos # (Auto) 0.1 K/mm3 (0-0.3) Baso # (Auto) 0.0 K/mm3 (0.0-0.1) Abs Immat Gran (auto) 0.04 H K/mm3 (0.00-0.031) Absolute Neuts (auto) 7.5 H K/mm3 (1.3-6.7) Absolute Nucleated RBC 0.0 K/mm3 (0.0-0.012) Nucleated RBC % 0.0 % (0.0-0.2) Sodium 135 L mmol/L (137-145) Potassium 3.7 mmol/L (3.4-5.0) Chloride 105 mmol/L (98-107) Carbon Dioxide 19 L mmol/L (22-30) Anion Gap 11 mmol/L (8-16) BUN 6 L mg/dL (7-17) Creatinine 0.50 L mg/dL (0.7-1.0) Estim Creat Clear Calc 184 ml/min Estimated GFR > 60 (59 - ) Glucose 105 mg/dL (65-110) Uric Acid 3.9 mg/dL (2.5-7.5) Calcium 8.4 mg/dL (8.4-10.2) Total Bilirubin 0.7 mg/dL (0.2-1.3) AST 20 U/L (14-36) ALT 14 U/L (6-35) Alkaline Phosphatase 103 U/L (38-126) Total Protein 6.0 L g/dL (6.3-8.2) Albumin 3.6 g/dL (3.5-5.1) RPR Pending Blood Type A Positive Antibody Screen Negative Patient hx anesthesia problems: none Family hx anesthesia problems: none Results Review: All pre-operative results and documents have been reviewed as part of the pre-operative evaluation. [facility] Past Medical History Medical History ADHD (attention deficit hyperactivity disorder) Family History Family History Mother Diabetes mellitus Social History Social History Smoking status: Never smoker Substance use: never Lack of Transportation: No Lack of Food: Never True Current Housing: I Do Not Have Housing Concerned About Future Housing: No Difficulty Paying Gas/Electric Bills: No Difficulty Paying for Meds: No Currently Unemployed: No Education: Bachelor's Degree Difficulty w/ Childcare or Family Care: No Spiritual care concerns: No Exam Day of Procedure 07/04/22 04:47
--- NOTE | 2022-07-04 04:55 | PM.IMHP ---
H&P: HPI History of Present Illness Date/Time: 07/04/22 04:55 Chief Complaint: rupture of Membranes at term Narrative: this is a 32-year-old female 2 para 1 whose last menstrual period was 09/27/2021, EDC is 07/10/2022, confirmed by 9 week ultrasound presents at 39 weeks gestation spontaneous rupture membranes prior to. She is positive for group B strep. She had a previous section and planned. [facility] Past Medical History Medical History ADHD (attention deficit hyperactivity disorder) Family History Family History Mother Diabetes mellitus Social History Social History Smoking status: Never smoker Substance use: never Lack of Transportation: No Lack of Food: Never True Current Housing: I Do Not Have Housing Concerned About Future Housing: No Difficulty Paying Gas/Electric Bills: No Difficulty Paying for Meds: No Currently Unemployed: No Education: Bachelor's Degree Difficulty w/ Childcare or Family Care: No Spiritual care concerns: No Meds Home Medications and Allergies Home Medications Medication Instructions Recorded Confirmed Type vit no.95-ferrous 1 tablet PO DAILY 12/03/20 12/03/20 History fumarate 28 mg-folic acid 800 mcg tablet () ferrous sulfate 325 mg (65 mg 325 mg PO DAILY #30 tabs 12/30/20 Rx iron) tablet Allergies Allergy/AdvReac Type Severity Reaction Status Date / Time No Known Allergies Allergy Verified 12/29/20 06:19 Vital Signs Vital Signs - 24 hr 07/04/22 02:46 07/04/22 03:05 07/04/22 03:16 Temperature Pulse Rate 84 84 79 Blood Pressure 151/97 H 150/86 H 143/90 H Oxygen Delivery 07/04/22 03:32 07/04/22 03:47 07/04/22 03:00 Temperature 97.9 F Pulse Rate 98 78 Blood Pressure 130/96 H 145/82 H Oxygen Delivery 07/04/22 04:02 07/04/22 04:17 07/04/22 04:31 Temperature Pulse Rate 78 80 87 Blood Pressure 147/86 H 127/54 L 136/85 Oxygen Delivery 07/04/22 03:19 Temperature Pulse Rate Blood Pressure Oxygen Delivery Room Air Exam Const: General: cooperative, healthy appearing, comfortable and well groomed Nutritional Appearance: overweight Orientation/consciousness: oriented to person, oriented to place and oriented to time HENMT: Head: normal to inspection Resp: Effort & Inspection: normal respiratory effort Cardio: Rate: regular rate Rhythm: regular rhythm Heart sounds: S1 normal heart sound present and S2 normal heart sound present GI: Inspection: normal to inspection ( Soft gravid uterus) : Speculum Exam - Vagina: normal appearance of the vagina Speculum Exam - Cervix: normal appearance of the cervix ( cervix 1cm by RN exam gross rupture fluid. FHTs reassuring) H&P: Results Labs Labs: Short CBC 07/04/22 Range/Units 03:03 WBC 9.9 (4.5-10.0) K/mm3 Hgb 11.4 L D (12.0-15.0) g/dL Hct 36.5 L (37.0-47.0) % Plt Count 218 (150-375) k/mm3 BMP 07/04/22 03:52 Sodium 135 L Potassium 3.7 Chloride 105 Carbon Dioxide 19 L BUN 6 L Creatinine 0.50 L Glucose 105 Calcium 8.4 Liver Function 07/04/22 Range/Units 03:52 Total Bilirubin 0.7 (0.2-1.3) mg/dL AST 20 (14-36) U/L ALT 14 (6-35) U/L Alkaline Phosphatase 103 (38-126) U/L Albumin 3.6 (3.5-5.1) g/dL Assessment and Plan Assessment and plan (1) GBS (group B Streptococcus carrier), +RV culture, currently : Code(s): O99.820 - Streptococcus B carrier state complicating Status: Acute (2) Term : Code(s): Z34.90 - Encounter for supervision of normal , unspecified, unspecified trimester Status: Acute Plan antibiotics given. We will proceed with repeat section.
[2022-07-04] MEDS: ceFAZolin 2 GM/D5W 50 ML 2 GM/50 ML BAG IVPB (05:10)
--- NOTE | 2022-07-04 05:10 | WPDHPUPDATE1 ---
History and Physical Update Update Date/Time: 07/04/22 05:10 History and Physical has been reviewed, including an updated exam of the patient. There are NO changes in the patient's condition. Risks, benefits, and alternatives have been discussed and questions answered. Patient agrees to proceed with procedure.
[2022-07-04] MEDS: KETOROLAC 30 MG/ML VIAL (*BKC) IV PUSH ×2 (05:43→14:35)
--- NOTE | 2022-07-04 06:04 | W.PM.PROC2 ---
Procedure Note - Detailed Date of Procedure 07/04/22 Pre-op Diagnosis leaking, r c/sPrevious section Post-op Diagnosis Same Procedure Performed repeat low-transverse section Surgeon Jesus Ely MD Anesthesia Spinal Indications 32-year-old 2 para 1 at term with spontaneous rupture membranes in labor previous section Findings female infant 7lb 14oz Apgars 5 and 9 at 1 and 5minutes respectively. Description of Procedure Patient was prepped draped in normal sterile fashion placed in the supine position. Under excellent spinal anesthetic the abdomen was entered in Pfannenstiel fashion progressive layers of fascia. Fascia incised midline. The pressure bilaterally. Underlying muscles sharply dissected. Parietal peritoneum away thick clamps and by sharp dissection. Superiorly and inferiorly dome bladder there was a large amount of omentum was stuck to the bladder and the posterior surface of the perineum and this was sharply dissected away. A bladder flap was formed and a bladder blade placed the bladder blade returned a low transverse incision made in the head delivered in the VITALY position. Anterior posterior shoulder delivered spontaneously. Cord clamped times and cut and passed off the table to cry. Placenta delivered intact manually . After assuring no membranes or debris remained in the uterus, the uterus was closed with continuous running locking 0 Vicryl from lateral edge to lateral edge. This was followed by 2nd imbricating running locking 0 Vicryl from lateral edge to lateral edge. Hemostasis was assured. Ovaries and tubes appeared within normal limits. Uterus returned to the abdomen. Hysterotomy incision inspected 1 last time noted be hemostatic. Laps removed and accounted for. The fascia closed with continuous running 0 Vicryl from lateral edge to midline bilaterally. Irrigation subcutaneous layer and the subcutaneous tissue was incised to undermine previous indented tissue. Has skin was closed with 4 Monocryl and glue. Blood loss for the procedure was 365cc. All sponge, needle, instrument counts were correct. Mom and baby doing the time dictated dictation. Estimated Blood Loss 365 Drains No Packing No Pathology None sent Complications No immediate complications Condition Stable Disposition PACU
[2022-07-04] MEDS: OXYTOCIN 30 UNITS/NS 500 ML 30 UNITS/500 ML BAG 125 UNITS IV CONT (07:34)
[2022-07-04 10:57] LABS: Rapid Plasma Reagin Non-Reactive (NonReactive)
--- NOTE | 2022-07-04 11:01 | PC.NURSE ---
[id number] Introductions were made, then consulted with patient to assess needs related to . Mother led the conversation with her?plans to feed?her infant and the?experience so far. Resources provided for inpatient and outpatient services with the feeding sheet, mom/baby guide and name written on the white board. Mother voiced understanding of information and requested RN to check the infant's blood sugar and assist with soon. [id number] Infant's BS resulted 51mg/dl. Mother works well with her infant with encouragement and education. Mother intends to feed her infant with combination of and formula feeding. Encouraged understanding of the benefits of skin to skin (demonstrating unwrapping and placing upright on her chest), stimulating with massage touch, changing positions to encourage wakefulness, how to watch for early feeding cues, responsive feeding,hand expression, finger feeding colostrum touching her breast with clean hands, feeding on demand (aiming for 8-12 times in 24 hours, about every 2-3 hours), milk production, building/maintaining a milk supply, duration of feeding, signs of adequate intake/output and how to record on the feeding sheet. Mother is going to eat her clear liquid foods, then continue to stimulate infant for . Resources used to facilitate learning were used with the tool, mom and baby guide. Reviewed how to protect the milk supply. Mother voiced understanding of skin to skin, stimulating with massage touch, responsive feedings, hand expressed colostrum, talking to to encourage if it has been 2 -2.5 hours since the start of the last , to call if does not latch, or if there is discomfort with . Resources provided for inpatient/outpatient with business card, feeding sheet and the mom/baby guide. Parents voiced understanding of information, demonstrated learning and will call if there is a request for assistance. Reported to the primary RN. Primary RN reported shortly afterwards that infant latched to the left breast using football positioning and it looked great .
[2022-07-04] MEDS: DEXTROSE 5%/0.45% SOD CHL 1,000 ML 125 ML IV CONT (12:00)
--- NOTE | 2022-07-04 17:53 | P.DS_ITS ---
DS: Admitting Diagnosis Discharge Date 07/06/22 Admitting Diagnosis IUP at 39 1/7 weeks SROM Prior OB - DS: Summary OB Procedures : None OB Procedures Intrapartum: OB Procedures: : None Peripartum Data Procedures: Procedures Operation Date: 07/04/22 05:30 Actual Procedure Side Surgeon p Section Not Applicable Jesus Ely MD Operation Date: 07/05/22 12:00 <No data on this case meets the specified criteria> Time Spent with Patient Time attestation: Total time spent providing and/or coordinating discharge services: DS: Data Data Completed and Pending Labs on day of discharge: Labs from last 24 hours 07/04/22 07/04/22 07/04/22 03:52 03:05 03:03 WBC 9.9 RBC 4.74 Hgb 11.4 L D Hct 36.5 L MCV 77.0 L MCH 24.1 L MCHC 31.2 L RDW 19.7 H Plt Count 218 MPV 11.1 H Immature Gran % (Auto) 0.4 Neut % (Auto) 75.6 H Lymph % (Auto) 17.2 L [place] % (Auto) 6.0 Eos % (Auto) 0.6 Baso % (Auto) 0.2 Lymph # (Auto) 1.70 [place] # (Auto) 0.6 Eos # (Auto) 0.1 Baso # (Auto) 0.0 Abs Immat Gran (auto) 0.04 H Absolute Neuts (auto) 7.5 H Absolute Nucleated RBC 0.0 Nucleated RBC % 0.0 Sodium 135 L Potassium 3.7 Chloride 105 Carbon Dioxide 19 L Anion Gap 11 BUN 6 L Creatinine 0.50 L Estim Creat Clear Calc 184 Estimated GFR > 60 Glucose 105 Uric Acid 3.9 Calcium 8.4 Total Bilirubin 0.7 AST 20 ALT 14 Alkaline Phosphatase 103 Total Protein 6.0 L Albumin 3.6 RPR Non-reactive Blood Type A Positive Antibody Screen Negative Discharge Plan Discharge Attending physician on discharge: Carl Tse Discharging Clinician: Carl Tse Patient Disposition: Home, Self-Care Activity: may shower, may drive after 2 weeks and pelvic rest Diet: regular Wound Care Instructions: incision open to air Discharge Instructions: Call or return if temperature above 100.4? F, increased abdominal pain, increased vaginal bleeding or any new problems. Stand Alone Forms: General Discharge Information Follow-up/Referrals: Carl Tse MD [Physician] - 4 Weeks Discharge Medications: New ibuprofen 600 mg tablet 600 mg PO Q6H PRN (Reason: cramps) Qty: 30 0RF hydrocodone-acetaminophen 5-325 mg tablet 1 - 2 tablet PO Q6H PRN (Reason: pain) Qty: 30 0RF No Action PNV cmb#95-ferrous fumarate-FA [] 28 mg iron- 800 mcg Tablet 1 tablet PO DAILY ferrous sulfate 325 mg (65 mg iron) tablet 325 mg PO DAILY Qty: 30 0RF Date of admission: 07/04/22 02:17 Primary Care Provider: PHYSICIAN,NET SQL DEVELOPER Admitting Provider: Carl Tse Attending physician on admission: Carl Tse Condition: Stable
[2022-07-04] MEDS: MULTIVIT/MIN/PREN/FOL AC/IRON TABLET 1 TAB PO (19:46)
[2022-07-04] MEDS: HYDROcodone/acetaminophen (*CRX) 5-325 MG TABLET 1 TAB PO ×2 (19:46→20:29)
[2022-07-04] MEDS: IBUPROFEN 600 MG TABLET PO (20:28)
[2022-07-04] MEDS: HYDROcodone/acetaminophen (*CRX) 10-325 MG TABLET 1 TAB PO (23:54)
[2022-07-05 04:00] VITALS: BP 130/77; PULSE 89; RESP 16; TEMP 36.4; O2SAT 99
[2022-07-05] MEDS: KETOROLAC 30 MG/ML VIAL (*BKC) IV PUSH (04:45)
[2022-07-05 05:09] LABS: Basophils Percent Auto 0.2 % (0.2-1.2); Eosinophils Absolute Auto 0.1 K/mm3 (0-0.3); Eosinophils Percent Auto 0.8 % (0-4.4); Hematocrit 33.8 % (37.0-47.0); Hemoglobin 10.4 g/dL (12.0-15.0); Immature Granulocyte Absolute 0.04 K/mm3 (0.00-0.031); Immature Granulocyte Percent A 0.5 % (0-0.5); Lymphocytes Absolute Auto 1.45 K/mm3 (0.9-3.2); Mean Corpuscular HGB Conc 30.8 g/dl (32-36); Mean Corpuscular Hemoglobin 24.1 pg (26-34); Mean Corpuscular Volume 78.2 fl (80-100); Mean Platelet Volume 11.4 fl (7.4-10.4); Monocytes Absolute Auto 0.6 K/mm3 (0.1-0.6); Neutrophils Absolute Auto 6.4 K/mm3 (1.3-6.7); Neutrophils Percent Auto 74.5 % (45.5-73.1); Platelet Count Result 188 k/mm3 (150-375); Red Blood Count 4.32 M/mm3 (4.2-5.4); Red Cell Distribution Width 19.7 % (11.5-14.5); White Blood Count 8.5 K/mm3 (4.5-10.0)
[2022-07-05] MEDS: MULTIVIT/MIN/PREN/FOL AC/IRON TABLET 1 TAB PO (07:37)
[2022-07-05] MEDS: HYDROcodone/acetaminophen (*CRX) 10-325 MG TABLET 1 TAB PO ×3 (07:38→18:40)
[2022-07-05] MEDS: DOCUSATE SODIUM 100 MG CAPSULE PO ×2 (07:39→16:00)
[2022-07-05 08:00] VITALS: PULSE 72; RESP 16; O2SAT 99
[2022-07-05 08:55] VITALS: BP 128/68; PULSE 72; RESP 16; TEMP 37; O2SAT 99
[2022-07-05] MEDS: IBUPROFEN 600 MG TABLET PO ×2 (10:54→18:37)
--- NOTE | 2022-07-05 11:05 | WPDANLDNPN2 ---
Anes-Prog Note L&D-Neuraxial Date/Time: 07/05/22 11:05 Neuraxial medications: intrathecal PF morphine Opiod-related complaints: none Patient feedback: Patient satisfied with post-operative pain management.
--- NOTE | 2022-07-05 11:06 | P.PNAN_ITS ---
Anes - Prog Note Post-Op Date/Time: 07/05/22 11:06 Cardiovascular status: normal Respiratory status: normal Airway patency: baseline Mental status: baseline Post-Op hydration status: normal Vital Signs: Last Vital Signs Temp 37.0 C 07/05/22 08:55 Pulse 72 07/05/22 08:55 Resp 16 07/05/22 08:55 BP 128/68 07/05/22 08:55 Pulse Ox 99 07/05/22 08:55 O2 Del Method Room Air 07/04/22 15:30 Pain Score (VAS): 7. RN at bedside with PO pain meds. I/O: Intake & Output 07/04/22 07/05/22 07/05/22 23:59 07:59 15:59 Intake Total 240 Output Total 1925 1900 Balance -1685 -1900 Laboratory Tests 07/05/22 04:40 07/04/22 03:52 07/05/22 04:40 WBC 8.5 RBC 4.32 Hgb 10.4 L Hct 33.8 L MCV 78.2 L MCH 24.1 L MCHC 30.8 L RDW 19.7 H Plt Count 188 MPV 11.4 H Immature Gran % (Auto) 0.5 Neut % (Auto) 74.5 H Lymph % (Auto) 17.0 L [facility] % (Auto) 7.0 Eos % (Auto) 0.8 Baso % (Auto) 0.2 Lymph # (Auto) 1.45 [facility] # (Auto) 0.6 Eos # (Auto) 0.1 Baso # (Auto) 0.0 Abs Immat Gran (auto) 0.04 H Absolute Neuts (auto) 6.4 Absolute Nucleated RBC 0.0 Nucleated RBC % 0.0 Post-procedural complaints: none Patient Feedback: Patient satisfied with anesthetic care.
--- NOTE | 2022-07-05 11:56 | PM.OBPNVD ---
OB - PN: Subj Subjective Date/time seen: 07/05/22 11:56 Narrative: Pain OK. Tolerating diet. OB - PN: Obj Data Labs 07/05/22 04:40 07/04/22 03:52 Labs: Laboratory Results - last 24 hr 07/05/22 04:40 WBC 8.5 RBC 4.32 Hgb 10.4 L Hct 33.8 L MCV 78.2 L MCH 24.1 L MCHC 30.8 L RDW 19.7 H Plt Count 188 MPV 11.4 H Immature Gran % (Auto) 0.5 Neut % (Auto) 74.5 H Lymph % (Auto) 17.0 L [place] % (Auto) 7.0 Eos % (Auto) 0.8 Baso % (Auto) 0.2 Lymph # (Auto) 1.45 [place] # (Auto) 0.6 Eos # (Auto) 0.1 Baso # (Auto) 0.0 Abs Immat Gran (auto) 0.04 H Absolute Neuts (auto) 6.4 Absolute Nucleated RBC 0.0 Nucleated RBC % 0.0 OB - PN A/P Plan Comments: A: POD#1, doing well. P: Routine care. Exam Narrative: AVSS I/O OK ABD soft, nontender, fundus firm. Incision c/d/i. EXT nontender
[2022-07-05] MEDS: HYDROcodone/acetaminophen (*CRX) 5-325 MG TABLET 1 TAB PO (14:20)
--- NOTE | 2022-07-05 16:48 | PC.NURSE ---
[id number] Introductions were made, then consulted with patient to assess needs related to . Mother led the conversation with her?plans to feed?her and the?experience so far. Resources provided for inpatient and outpatient services with the feeding sheet, mom/baby guide. Mother states her nipples are tender at first, then the discomfort subsides. Nipples normal, luis e, and skin intact with no visible signs of injury on assessment. Reviewed what an effective latch with swallowing at the breast looks and feels like. Reminded mother of the stage and what to expect the 1st 24, 2nd 24 hours, and how to watch for good intake/output with baby. Reminded parents to use good handwashing technique to prevent infection. Mother is feeding appropriately for growth of infant and understands stimulating to eat if needed. Infant has had appropriate feedings in the last 24 hours meets the outcomes for weight, output and jaundice at this time. Mother states she is confident to breastfeed effectively as she breastfed their 18 month old as well. Mother was encouraged to call the RN for assistance if there is pain with the latch or is skipping two feedings and not waking up to breastfeed. Mother voiced understanding of the information.
[2022-07-05 20:15] VITALS: BP 130/84; PULSE 76; RESP 20; TEMP 36.7; O2SAT 97
[2022-07-06] MEDS: HYDROcodone/acetaminophen (*CRX) 5-325 MG TABLET 1 TAB PO ×3 (00:15→10:33)
[2022-07-06] MEDS: IBUPROFEN 600 MG TABLET PO ×2 (00:15→05:43)
[2022-07-06 07:45] VITALS: BP 137/89; PULSE 65; RESP 16; TEMP 37; O2SAT 100
[2022-07-06 08:00] VITALS: PULSE 65; RESP 16; O2SAT 100
--- NOTE | 2022-07-06 09:00 | PM.OBPNVD ---
OB - PN: Subj Subjective Date/time seen: 07/06/22 09:00 Narrative: Pain OK. Tolerating diet. Would like to go home. OB - PN: Obj Data Labs 07/05/22 04:40 07/04/22 03:52 OB - PN A/P Plan day: 2 Comments: A: POD#2, doing well. P: Home to f/u 4 weeks. Exam Narrative: AVSS ABD soft, nontender, fundus firm. Incision c/d/i. EXT nontender
[2022-07-06] MEDS: DOCUSATE SODIUM 100 MG CAPSULE PO (10:32)
[2022-07-06] MEDS: MULTIVIT/MIN/PREN/FOL AC/IRON TABLET 1 TAB PO (10:33)
--- NOTE | 2022-07-06 13:06 | PC.NURSE ---
Patient was given the opportunity to view the discharge video [facility] Baby [facility], The First Two Weeks and to ask questions. Patient declined viewing the video and has been given the mother/baby guide for home reference.
[2022-07-09 11:21] VITALS: BP 154/105; PULSE 66; RESP 20; TEMP 36.8
== END 2022-07-06 13:00 | disposition home or self-care (01) | DRG 788 ==
LOC: ANHLDR 02:34 → ANHOB2 08:29
PROVIDERS: Admitting Provider Obstetrics & Gynecology; Visit Provider Obstetrics & Gynecology
PROC: 10D00Z1 Extraction of Products of Conception, Low, Open Approach (ICD-10-PCS; CPT 59514; principal; 2022-07-04 05:30)
DX: O34.211 Maternal care for low transverse scar from previous cesarean delivery (principal); Z37.0 Single live birth; Z3A.39 39 weeks gestation of pregnancy; O99.824 Streptococcus B carrier state complicating childbirth
CPT/HCPCS: 36415; 80053; 84550; 85025; 86592; 86850; 86900; 86901; A9270; J0131; J0290; J0456; J0690; J1885; J2274; J2370; J2405; J2590; J7120